=== PATIENT | male | born 1975 ===

== ENCOUNTER 2017-01-29 08:09 | Day surgery (SDC) | payer BC ==
[~2017-01-29 08:09] MED LIST: Buffered Lidocaine 0.9% SYRIN* 5 ML/SYR SYRINGE INTRADERM ONE; Dexamethasone IV* 4 MG/ML 1 ML (4 MG) IV SLOW PU ONE; Famotidine IV* 10 MG/ML 2 ML (20 mg) IV ONE
[2017-01-29] MEDS ORDERED: Dexamethasone IV* 4 MG/ML 1 ML (4 MG) ONE (08:24)
[2017-01-29] MEDS ORDERED: ceFAZolin 2 GM PREMIX (*) 2 GM/50 ML BAG IVPB ONE (08:24)
[2017-01-29] MEDS ORDERED: Famotidine IV* 10 MG/ML 2 ML (20 mg) ONE (08:24)
[2017-01-29] MEDS ORDERED: Buffered Lidocaine 0.9% SYRIN* 5 ML/SYR SYRINGE ONE (08:24)
[2017-01-29] MEDS ORDERED: fentaNYL* 50 MCG/ML 2 ML VIAL (100 MCG VIAL) ONE ×2 (10:14→12:14)
[2017-01-29] MEDS ORDERED: Bupivacaine 0.5% SDV PF* 30 ML VIAL ONE (10:14)
[2017-01-29] MEDS ORDERED: EPINEPHrine AMP 1 MG/ML ONE (10:14)
[2017-01-29] MEDS ORDERED: Midazolam* 1 MG/ML 5 ML VIAL (5 MG) ONE (10:14)
[2017-01-29] MEDS ORDERED: ROPIVACAINE 5 MG/ML 30 ML BTL (0.5%) ONE (10:16)
[2017-01-29] MEDS ORDERED: Lidocaine 2% PF * 5 ML VIAL ONE (10:41)
[2017-01-29] MEDS ORDERED: Propofol* 10 MG/ML 20 ML BTL IV PUSH ONE (10:41)
[2017-01-29] MEDS ORDERED: Rocuronium* 10 MG/ML VIAL ONE (10:41)
[2017-01-29] MEDS ORDERED: fentaNYL* 50 MCG/ML 2 ML VIAL (100 MCG VIAL) IV PRN (11:42)
[2017-01-29] MEDS ORDERED: HYDROcodone/ACETAMIN 5-325 MG* 1 TAB PO PRN (11:42)
[2017-01-29] MEDS ORDERED: oxyCODONE/Acetamin 5/325 MG* TAB PO PRN (11:42)
[2017-01-29] MEDS ORDERED: Ketorolac INJ* 30 MG/ML 1 ML VIAL IV SCH (12:00)
[2017-01-29] MEDS ORDERED: Ondansetron INJ* 2 MG/ML VIAL ONE ×2 (12:57→16:48)
[2017-01-29] MEDS ORDERED: Ketorolac INJ* 30 MG/ML 1 ML VIAL ONE ×2 (14:35→14:39)
[2017-01-29] MEDS ORDERED: PROCHLORPERAZINE INJ 5 MG/ML 2 ML VIAL ONE ×4 (14:35→15:52)
[2017-01-29] MEDS: PROCHLORPERAZINE INJ 5 MG/ML 2 ML VIAL IV PRN ×2 (14:37→15:54)
[2017-01-29] MEDS ORDERED: Ondansetron INJ* 2 MG/ML VIAL IV ONE (16:47)
[2017-01-29] MEDS ORDERED: Scopolamine 1.5 mg* PATCH ONE (16:48)
[2017-01-29] MEDS ORDERED: Scopolamine PATCH Remove* 1 NOTE MISC PATCH OFF SCH (17:00)
[2017-01-29] MEDS ORDERED: Scopolamine 1.5 mg* PATCH TRANSDERM SCH (17:00)
[2017-01-29 18:37] VITALS: BP 136/85
--- NOTE | 2017-02-01 00:35 | OP ---
DATE OF OPERATION: 01/29/17 [facility] DATE OF : 73 SURGEON: Giacomo Singh MD SENIOR ENERGY ANALYST: MOLINA Diamond. A physician assistant spa manager was required for the length of the procedure for positioning and assistance with instrumentation. ANESTHESIOLOGIST: Reyna Duque MD ANESTHESIA: General anesthesia, regional interscalene block right shoulder anesthesia, local anesthesia approximately 8 mL with 0.5% Marcaine. PRE-OP DIAGNOSES: . Right shoulder supraspinatus rotator cuff tendon tear, full thickness versus high grade partial thickness, anterior, supraspinatus. 2. Right shoulder possible proximal biceps tendinosis. 3. Right shoulder subacromial impingement, possible acromioclavicular joint bursitis or arthritis. POST-OP DIAGNOSES: 1. Right shoulder supraspinatus rotator cuff tendon tear, full thickness. 2. Right shoulder proximal biceps tendinosis. 3. Right shoulder subacromial impingement. 4. Right shoulder acromioclavicular joint bursitis and arthritis. OPERATIVE PROCEDURES: 1. Right shoulder arthroscopic rotator cuff tendon repair, supraspinatus, single row, single anchor. 2. Right shoulder open proximal biceps tenodesis. 3. Right shoulder arthroscopic subacromial decompression. 4. Right shoulder arthroscopic distal clavicle resection. 5. Right shoulder arthroscopic limited debridement of rotator interval and release of biceps tendon. ANTIBIOTICS: Ancef 2 g IV. IV FLUIDS: 1200 cc crystalloid. COMPLICATIONS: None. SPECIMEN: None. IMPLANTS: Mitek Sin and Sin Healix 5.5 mm suture anchor, triple loaded , x1. Arthrex proximal biceps button x1. ESTIMATED BLOOD LOSS: Minimal. INDICATIONS: The patient is a 41-year-old man, right hand dominant, who has had right shoulder pain since 2012. See history and physical for full history. The patient had seen a number of different orthopedic surgeons and had considered surgery in a number of different time points. He opted for surgical management by me. We discussed risks and potential complications of procedure including bleeding, infection, nerve or blood vessel injury, blood clot, shoulder pain, stiffness, osteoarthritis, hardware complications. We discussed that the rotator cuff would be repaired should it be high grade partial thickness or full thickness. We discussed evaluation and treatment of the biceps. The patient preferred an open biceps tenodesis rather than simply a biceps tenotomy should it needed to be treated as well bony spurs about the undersurface of the acromion and the clavicle will be treated as necessary. DESCRIPTION OF PROCEDURE: Preoperatively, written consent was signed. Operative extremity was marked in the preoperative holding. Regional interscalene block was performed in preoperative holding. The patient was taken back to the operating room, placed supine on the operating room table. The patient was sedated and intubated. The patient was placed on the lateral decubitus position with the right shoulder up. Axillary roll placed, bony prominences padded, sweeney bag insufflated. Shoulder placed in appropriate amount of traction, 15 pounds, in the appropriate manner in forward flexion and abduction. The right shoulder was prepped and draped. Surgical time-out was performed. Right shoulder was entered with a spinal needle from posterior. 30 mL of normal saline were infused. I then entered the right shoulder glenohumeral joint from the posterior making the portal using standard technique. Diagnostic arthroscopy was commenced. No glenohumeral articular cartilage lesions were present. There was some tendinosis of the biceps tendon, especially socking about its anchor with the superior labrum. I worked carefully at the subscapularis with the humeral head in a variety of positions. There was no clear tear in it. There was, however, significant fraying of the anterior most aspect of the supraspinatus tendon. There was also some visible footprint. Anterior glenohumeral joint portal was established using standard technique. I debrided some rotator interval tissue with an arthroscopic shaver. I probed the biceps along its length including in an area of severe softening and tendinosis about the junction in the superior labrum and the proximal biceps. I decided therefore to cut the biceps and treat it. Arthroscopic scissors were used to cut the biceps at its origin of the superior labrum. I used an arthroscopic shaver to debride the clear tearing at the anterior most aspect of the supraspinatus tendon. Debriding some of the frayed tissue allowed better visualization and showed significant damage to the tendon in this location. I did not measure the amount of exposed footprint, but it was at least 3 mm before the frayed rotator cuff was encountered. I used a spinal needle to meghann this area from outside of the shoulder. I removed instruments and fluid from the shoulder joint. I entered the subacromial space from posterior and anterior. I established a lateral subacromial portal. I debrided a significant amount of bursitis in the subacromial space using arthroscopic shaver. I was able to well visualize the marking spinal needle. I established a posterolateral subacromial portal from probe visualization. I probed the area about the spinal needle with an arthroscopic probe. With no pressure whatsoever, the probe slid directly from the subacromial space to the glenohumeral joint indicating a full thickness tear. In introduced a shaver into this hole and debrided the torn tendon back to a healthy border. It was a small crescent shaped full thickness tear in the anterior aspect of the supraspinatus. Next, I performed a subacromial decompression. I removed approximately 6 mm of the anterior hook of the acromion using an arthroscopic danita. I prepared the humeral head rotator cuff footprint with a VAPR and then arthroscopic danita. I established a superolateral portal that I would instrument through and I would place my anchor with. I placed a triple-loaded suture anchor after punching a pass. I next placed 3 horizontal mattress stitches in the supraspinatus tendon using an ideal suture passer. I was careful not to entrap the biceps tendon anteriorly. I obtained excellent reduction of the rotator cuff tendon. Before cutting my sutures, I probed the repair aggressively with the arthroscopic probe and I rotated the humerus and confirmed the stability of the repair. I determined a lateral row anchor was not required therefore. I cut the suture ends. I next turned my attention to the AC joints. The patient had a significant amount of bursitic tissue in the vicinity of the AC joint. I debrided a spur, small on the acromial side of the AC joint and then debrided 8 mm of the distal aspect of the clavicle. This took some time because the clavicle definitely was slightly more superiorly positioned than typical and I made sure to resect all the way through the 4 corners of the distal clavicle. Fluid and instruments were removed from the subacromial space. Skin incisions were closed with [id number] and 12 stitches using nylon 4-0 suture. Sweeney bag was deflated while Anesthesia carefully watched the head and neck. I returned the patient to the supine position and then brought the patient back around over to the bed safely. Some of the instruments were changed, but sterility was maintained. I marked the appropriate landmarks of the upper arm and then made an approximately 4 cm longitudinal incision overlying the anteromedial aspect of the right upper arm. Dissected through skin and subcutaneous tissue. Palpated inferior aspect of the pectoralis major tendon. Followed it to the bicipital groove. I debrided the bicipital groove with Bovie electrocautery and periosteal elevator. Placed a pin through the anterior cortex of the humerus. I had retrieved the proximal biceps tendon from the wound. I placed 3 stitches with FiberLoop suture, ending at the appropriate level for good length tension relationship using my own technique. I loaded my proximal biceps button. The button was placed, flipped, and a knot was tied. I placed 1 more stitch through the proximalized biceps tendon. A stump of biceps tendon was cut as were sutures. Irrigation. Instruments removed. The subcutaneous layer was closed with buried simple stitches using Vicryl 3-0 suture. Closure of the subcuticular layer with running stitches in Monocryl 4-0 suture. I placed approximately 8 mL of local anesthetic about the subcutaneous tissue above the skin incision. I next placed Mastisol and Steri- Strips across the open incision for the biceps. For the arthroscopic incisions , I placed Xeroform, followed by 4x4's. A foam tape over the entire dressing. ABDs were also over the 4 x 4s and under the foam tape. A cooling unit, sling with abduction pillow. The patient was in the supine position and was awakened and extubated. DISPOSITION: The patient was sent home with Percocet as needed for pain control , Keflex for 3 days and aspirin for 2 weeks. He will follow up in 10 to 14 days postoperatively. He will start physical therapy early next week. [id number]/[facility] #: [id number] KALIE
== END 2017-01-29 17:30 | disposition home or self-care (01) ==
LOC: OR 08:09
PROVIDERS: ATTEND Orthopaedic Surgery
DX: S46.011A Strain of muscle(s) and tendon(s) of the rotator cuff of right shoulder, initial encounter (principal); M75.21 Bicipital tendinitis, right shoulder; M75.41 Impingement syndrome of right shoulder; M75.51 Bursitis of right shoulder; M19.011 Primary osteoarthritis, right shoulder; I10 Essential (primary) hypertension; Z87.891 Personal history of nicotine dependence; F41.9 Anxiety disorder, unspecified; X58.XXXA Exposure to other specified factors, initial encounter; Y92.9 Unspecified place or not applicable
CPT/HCPCS: A9270-GY; J0171; J0690; J0780; J1100; J1885; J2250; J2405; J2704; J2795; J3010

== ENCOUNTER 2018-08-21 19:33 | Emergency (ER) | payer BC ==
[2018-08-21 19:50] VITALS: BP 137/93
--- NOTE | 2018-08-21 20:23 | UC ---
Skin Complaint HPI - HPI Summary HPI Summary: 43 y/o female presents to the urgent care c/o Pt was punctured yesterday in his upper left arm with a selvin nail. - History of Current Complaint Chief Complaint: UCSkin Time Seen by Provider: 08/21/18 20:21 Stated Complaint: NAIL PUNCTURE WOUND Hx Obtained From: Patient Pain Intensity: 4 - Allergy/Home Medications Allergies/Adverse Reactions: Allergies Allergy/AdvReac Type Severity Reaction Status Date / Time No Known Allergies Allergy Verified 08/21/18 19:50 Home Medications: Home Medications Aspirin/Acetaminophen/Caffeine [Excedrin Migraine Caplet] 1 each PO Q6H [History Confirmed 08/21/18] amLODIPine TAB* [Norvasc 5 mg TAB*] 5 mg PO DAILY 08/21/18 [History Confirmed ] PMH/Surg Hx/FS Hx/Imm Hx Previously Healthy: Yes Cardiovascular History: Hypertension - Surgical History Surgical History: Yes Surgery Procedure, Year, and Place: shoulder repair - Family History Known Family History: Positive: Hypertension - Social History Occupation: Employed Full-time Lives: With Family Alcohol Use: Weekly Alcohol Amount: 4-5 per week Substance Use Type: None Smoking Status (MU): Former Smoker Amount Used/How Often: 1/2 pack a day for 10 years When Did the Patient Quit Smoking/Using Tobacco: 12 yrs ago - Immunization History Most Recent Tetanus Shot: "20 years ago" Hx Tetanus, Diphtheria Vaccination: No Physical Exam Vital Signs: Initial Vital Signs Temp 99.8 F 08/21/18 19:45 Pulse 95 08/21/18 19:45 Resp 16 08/21/18 19:45 BP 137/93 08/21/18 19:45 Pulse Ox 99 08/21/18 19:45 Course/Dx - Differential Diagnoses - Skin Complaint Differential Diagnoses: Abscess, Cellulitis, Contact Dermatitis, Urticaria, Other - puncture wound - Diagnoses Provider Diagnosis: Puncture wound of left upper arm, Uncontrolled hypertension Discharge - Sign-Out/Discharge Documenting (check all that apply): Patient Departure - d/c home All imaging exams completed and their final reports reviewed: No Studies - Discharge Plan Condition: Stable Disposition: HOME Patient Education Materials: Puncture Wound (ED) Referrals: Mathew Barton MD [Primary Care Provider] - 3 Days Additional Instructions: 1-Please take full course of Antibiotic. 2- If redness and swelling doubles in size beyond what was demarcated after 48 hrs of taking antibiotic and fever develops please go to the ER immediately. 3-Avoid standing for long periods of time or flexing your foot, keep it elevated and keep wound clean and dry. 4-Please F/u with your PCP in 2 days for further evaluation and treatment. - Billing Disposition and Condition Condition: STABLE Disposition: Home
[2018-08-21] MEDS ORDERED: Tetan/Diph/Pertus SYR(Tdap)* 0.5 ML SYR(BOOSTRIX) use SYR IM ONE (20:29)
[2018-08-21] MEDS ORDERED: Cephalexin CAP* 500 MG PO ONE (20:29)
== END 2018-08-21 20:50 | disposition home or self-care (01) ==
LOC: UCEAST 19:33
DX: S41.132A Puncture wound without foreign body of left upper arm, initial encounter (principal); I10 Essential (primary) hypertension; W26.8XXA Contact with other sharp object(s), not elsewhere classified, initial encounter; Y92.9 Unspecified place or not applicable; Z87.891 Personal history of nicotine dependence
CPT/HCPCS: 90471; 90715; 99212; A9270-GY; G0463